=== PATIENT | female | born 1995 | race Caucasian/White ===

== ENCOUNTER 2017-04-07 09:35 | Emergency (ER) | payer BC ==
[~2017-04-07] VITALS: Ht 160 cm; Wt 49.0 kg
[2017-04-07 09:43] VITALS: TEMP 36.9; Ht 160 cm; Wt 49.0 kg
[2017-04-07] MEDS ORDERED: SODIUM CHLORIDE 0.9% 1000ML 1,000 ML IV STA ×2 (10:00→11:00)
[2017-04-07] MEDS ORDERED: KETOROLAC TROMETHAMINE 30 MG/ML VIAL IV STA (10:00)
[2017-04-07] MEDS ORDERED: ONDANSETRON INJ 2 MG/ML 2 ML VIAL IV STA ×2 (10:00→12:06)
[2017-04-07] MEDS ORDERED: DiphenhydrAMINE HCL 50 MG/ML VIAL IV STA (10:00)
--- NOTE | 2017-04-07 10:01 | EMERGENCY ROOM VISIT NOTE ---
History Report prepared by Pawel: Rios Tan Under the Supervision of: Dr. Murray Arora M.D. First contact with patient: 09:50 Chief Complaint: FLU LIKE SX Stated Complaint: NAUSEA,STOMACH CRAMPS,SHAKING,VOMITING History of Present Illness The patient is a 21 year old female who presents to the Emergency Room with complaints of worsening flu-like symptoms since yesterday. She says that she was really sick all night, and has been having body aches, with nausea, vomiting , and abdominal pain. She notes that her abdominal pain is all over and an aching feeling. She adds that the abdominal pain came on before she started vomiting. The patient says that she has been eating okay. She notes that her roommates have been sick recently. She denies any urinary symptoms, diarrhea, or leg swelling. The patient states that she had sinus surgery a few weeks ago and is now taking Sindhu D. Source of History: patient Onset: Yesterday Position: other (global - flu-like symptoms) Quality: other (roommates had been sick recently) Timing: worsening Associated Symptoms: + nausea, + vomiting, + abdominal pain, No diarrhea, No urinary symptoms Note: Associated symptoms: Body aches. Denies leg swelling. Review of Systems See HPI for pertinent positives & negatives. A total of 10 systems reviewed and were otherwise negative. Past Medical & Surgical Medical Problems: (1) No chronic problems Family History No pertinent family history Social History Smoking Status: Never Smoker Smokeless Tobacco Use: No Marital Status: single Housing Status: lives with roommate Occupation Status: student Current/Historical Medications Scheduled Control Pills ( Control Pills), 1 TAB PO DAILY Ondasetron Odt (Zofran Odt), 4 MG SL Q6H Oseltamivir (Tamiflu), 75 MG PO BID Allergies Coded Allergies: No Known Allergies (Unverified , 04/07/17) Physical Exam Vital Signs Date Time Temp Pulse Resp B/P (MAP) Pulse Ox O2 Delivery O2 Flow Rate FiO2 04/07/17 13:18 96 114/84 100 04/07/17 11:15 72 18 134/66 96 Room Air 04/07/17 09:43 36.9 18 136/75 96 Room Air Physical Exam GENERAL: Patient is tired appearing and in no acute distress. HEENT: No acute trauma, normocephalic atraumatic. Runny nose with mild posterior pharyngeal erythema. Dehydrated with dry mucous membranes, no scleral icterus. NECK: No stridor, no adenopathy, no meningismus, trachea is midline. LUNGS: No dyspnea. Clear to auscultation and equal bilaterally. No wheeze, no rhonchi. HEART: Regular rate and rhythm. No murmurs, rubs, gallops appreciated. ABDOMEN: Soft, nontender, bowel sounds positive, no masses appreciated, no peritonitis. BACK: No midline tenderness, no CVA tenderness EXTREMITIES: Normal motion all extremities, no cyanosis, no edema. NEUROLOGIC: Alert and oriented, no acute motor or sensory deficits, no focal weakness, cranial nerves grossly intact. SKIN: No rash, no jaundice, no diaphoresis. Medical Decision & Procedures Laboratory Results 04/07/17 10:12 Red Blood Count 5.29, Mean Corpuscular Volume 85.6, Mean Corpuscular Hemoglobin 29.9, Mean Corpuscular Hemoglobin Concent 34.9, Mean Platelet Volume 9.0, Neutrophils (%) (Auto) 92.6, Lymphocytes (%) (Auto) 2.8, Monocytes (%) (Auto) 4.0, Eosinophils (%) (Auto) 0.3, Basophils (%) (Auto) 0.1, Neutrophils # (Auto) 10.76, Lymphocytes # (Auto) 0.33, Monocytes # (Auto) 0.47, Eosinophils # (Auto) 0.03, Basophils # (Auto) 0.01 04/07/17 10:12 Test 04/07/17 10:12 White Blood Count 11.62 K/uL (4.8-10.8) Red Blood Count 5.29 M/uL (4.2-5.4) Hemoglobin 15.8 g/dL (12.0-16.0) Hematocrit 45.3 % (37-47) Mean Corpuscular Volume 85.6 fL (80-100) Mean Corpuscular Hemoglobin 29.9 pg (25-34) Mean Corpuscular Hemoglobin Concent 34.9 g/dl (32-36) Platelet Count 252 K/uL (130-400) Mean Platelet Volume 9.0 fL (7.4-10.4) Neutrophils (%) (Auto) 92.6 % Lymphocytes (%) (Auto) 2.8 % Monocytes (%) (Auto) 4.0 % Eosinophils (%) (Auto) 0.3 % Basophils (%) (Auto) 0.1 % Neutrophils # (Auto) 10.76 K/uL (1.4-6.5) Lymphocytes # (Auto) 0.33 K/uL (1.2-3.4) Monocytes # (Auto) 0.47 K/uL (0.11-0.59) Eosinophils # (Auto) 0.03 K/uL (0-0.5) Basophils # (Auto) 0.01 K/uL (0-0.2) RDW Standard Deviation 40.0 fL (36.4-46.3) RDW Coefficient of Variation 12.7 % (11.5-14.5) Immature Granulocyte % (Auto) 0.2 % Immature Granulocyte # (Auto) 0.02 K/uL (0.00-0.02) Urine Color YELLOW Urine Appearance CLOUDY (CLEAR) Urine pH 6.0 (4.5-7.5) Urine Specific [place] 1.031 (1.000-1.030) Urine Protein NEG (NEG) Urine Glucose (UA) NEG (NEG) Urine Ketones TRACE (NEG) Urine Occult Blood NEG (NEG) Urine Nitrite NEG (NEG) Urine Bilirubin NEG (NEG) Urine Urobilinogen NEG (NEG) Urine Leukocyte Esterase SMALL (NEG) Urine WBC (Auto) 10-30 /hpf (0-5) Urine RBC (Auto) 0-4 /hpf (0-4) Urine Hyaline Casts (Auto) 1-5 /lpf (0-5) Urine Epithelial Cells (Auto) >30 /lpf (0-5) Urine Bacteria (Auto) 2+ (NEG) Urine Pathogenic Casts /lpf (0) Urine Test NEG (NEG) Anion Gap 5.0 mmol/L (3-11) Est Creatinine Clear Calc Drug Dose 117.7 ml/min Estimated GFR () > 150.0 Estimated GFR (Non- 131.9 BUN/Creatinine Ratio 26.0 (10-20) Calcium Level 9.1 mg/dl (8.5-10.1) Total Bilirubin 0.6 mg/dl (0.2-1) Direct Bilirubin 0.1 mg/dl (0-0.2) Aspartate Amino Transf (AST/SGOT) 16 U/L (15-37) Alanine Aminotransferase (ALT/SGPT) 18 U/L (12-78) Alkaline Phosphatase 65 U/L (45-117) Total Protein 7.7 gm/dl (6.4-8.2) Albumin 3.8 gm/dl (3.4-5.0) Lipase 136 U/L (73-393) Laboratory results as reviewed by me. Medications Administered Medications (Trade) Dose Ordered Sig/Liliya Route Start Time Stop Time Status Last Admin Dose Admin Ondansetron HCl (Zofran Inj) 4 mg NOW STAT IV 04/07/17 10:00 04/07/17 10:01 DC 04/07/17 10:21 4 MG Diphenhydramine HCl (Benadryl Inj) 25 mg NOW STAT IV 04/07/17 10:00 04/07/17 10:01 DC 04/07/17 10:21 25 MG Ketorolac Tromethamine (Toradol Inj) 30 mg NOW STAT IV 04/07/17 10:00 04/07/17 10:01 DC 04/07/17 10:20 30 MG Sodium Chloride 1,000 ml @ 999 mls/hr Q1H1M STAT IV 04/07/17 10:00 04/07/17 11:00 DC 04/07/17 10:21 999 MLS/HR Sodium Chloride 1,000 ml @ 999 mls/hr Q1H1M STAT IV 04/07/17 11:00 04/07/17 12:00 DC 04/07/17 11:00 999 MLS/HR Ondansetron HCl (Zofran Inj) 4 mg NOW STAT IV 04/07/17 12:06 04/07/17 12:07 DC 04/07/17 12:14 4 MG ED Course 0952: The patient was evaluated in room B2. A complete history and physical exam was performed. 1100: I reevaluated the patient and she notes that she is just not feeling well. She says that she has a history of mono twice before and she notes that this does not feel like that either. 1243: Reevaluated the patient and she is feeling better. Discussed results and discharge instructions. I also discussed the pros and cons of Tamiflu and she very much wishes to start it. she verbalized understanding and agreement. I checked her abdomen and it is soft and nontender, and nonsurgical. The patient is ready for discharge. Medical Decision Differential: Gastroenteritis, Food Borne, Esophageal Perforation, , Electrolyte Abnormality, Dehydration, Intraabdominal Infection, UTI/ Pyelonephritis, Bowel Obstruction, Biliary Pathology, amongst other pathology entertained. 21 yr old female with nausea vomiting illness with vague abdominal discomfort without surgical abdomen by exam, who also has some body aches, runny nose and fatigue. Likely flu illness. Given fluids and above with gradual improvement in symptoms. Discussed at length pros/cons/indications of Tamiflu and she very much wishes to start this medication. She is stable, breathing comfortably and in no distress. UA some bacteria though I feel this is likely dehydration and skin sonam. The patient is well hydrated, happy, breathing comfortably and in no distress. They are not septic and are stable at discharge. At length discussion regarding RTED instructions. Medication Reconcilliation Current Medication List: was personally reviewed by me Blood Pressure Screening Patient's blood pressure: Elevated blood pressure Blood pressure disposition: Elevated BP felt to be situational Impression Primary Impression: Nausea & vomiting Additional Impressions: Dehydration Flu-like symptoms Scribe Attestation The scribe's documentation has been prepared under my direction and personally reviewed by me in its entirety. I confirm that the note above accurately reflects all work, treatment, procedures, and medical decision making performed by me. Departure Information Dispostion Home / Self-Care Prescriptions Ondasetron Odt (ZOFRAN ODT) 4 Mg Tab 4 MG SL Q6H for Nausea, #12 TAB Prov: Murray Arora M.D. 04/07/17 Oseltamivir (Tamiflu) 75 Mg Cap 75 MG PO BID, #10 CAP Prov: Murray Arora M.D. 04/07/17 Referrals No Doctor, Assigned (PCP) Patient Instructions ED Nausea Vomiting, My [facility] Problem Qualifiers
[2017-04-07] MEDS ORDERED: BCPILLS PO (10:18)
[2017-04-07 10:26] LABS: BASO % 0.1 %; BASO ABS # 0.01 K/uL (0-0.2); EOS % 0.3 %; EOS ABS # 0.03 K/uL (0-0.5); HEMATOCRIT 45.3 % (37-47); HEMOGLOBIN 15.8 g/dL (12.0-16.0); IG# 0.02 K/uL (0.00-0.02); LYMPH % 2.8 %; LYMPH ABS # 0.33 K/uL (1.2-3.4); MEAN CELL VOLUME 85.6 fL (80-100); MEAN CORPUSCULAR HEMOGLOBIN 29.9 pg (25-34); MEAN CORPUSCULAR HGB CONC 34.9 g/dl (32-36); MONO ABS # 0.47 K/uL (0.11-0.59); NEUT % 92.6 %; NEUT ABS # 10.76 K/uL (1.4-6.5); PLATELET COUNT 252 K/uL (130-400); RED CELL DISTRIBUTION WIDTH CV 12.7 % (11.5-14.5); WHITE BLOOD COUNT 11.62 K/uL (4.8-10.8)
[2017-04-07 10:43] LABS: ALBUMIN 3.8 gm/dl (3.4-5.0); ALT/SGPT 18 U/L (12-78); BLOOD UREA NITROGEN 15 mg/dl (7-18); CALCIUM 9.1 mg/dl (8.5-10.1); CARBON DIOXIDE 28 mmol/L (21-32); CREATININE 0.59 mg/dl (0.60-1.20); GLUCOSE 99 mg/dl (70-99); LIPASE 136 U/L (73-393); POTASSIUM 3.5 mmol/L (3.5-5.1); SODIUM 138 mmol/L (136-145)
[2017-04-07 10:46] LABS: ALKALINE PHOSPHATASE 65 U/L (45-117); AST/SGOT 16 U/L (15-37); TOTAL PROTEIN 7.7 gm/dl (6.4-8.2)
[2017-04-07] MEDS ORDERED: ONDA4TAB10 SL (12:43)
[2017-04-07] MEDS ORDERED: OSEL75CA12 PO (12:43)
[2017-04-07 13:18] VITALS: BP 114/84; PULSE 96; O2SAT 100
== END 2017-04-07 13:20 | disposition home or self-care (01) ==
LOC: C.EDB 09:37
DX: R11.2 Nausea with vomiting, unspecified (principal); E86.0 Dehydration; R10.9 Unspecified abdominal pain; Z79.3 Long term (current) use of hormonal contraceptives; Z79.899 Other long term (current) drug therapy